=== PATIENT | male | born 1955 | race Asian ===

== ENCOUNTER 2019-04-04 08:53 | Outpatient (CLI) | payer OTHER | END 2019-04-04 19:22 | disposition home or self-care (01) | LOC: RAD 08:53 | DX: M96.69 Fracture of other bone following insertion of orthopedic implant, joint prosthesis, or bone plate (principal); M17.0 Bilateral primary osteoarthritis of knee; H54.7 Unspecified visual loss; K90.0 Celiac disease; N18.3 Chronic kidney disease, stage 3 (moderate); Z85.528 Personal history of other malignant neoplasm of kidney; I10 Essential (primary) hypertension; R73.03 Prediabetes ==

== ENCOUNTER 2020-07-26 09:41 | Emergency (ER) | payer OTHER ==
[~2020-07-26] VITALS: Ht 195.6 cm; Wt 149.7 kg
[2020-07-26 10:10] VITALS: TEMP 98.2
[2020-07-26 11:24] VITALS: BP 156/89
== END 2020-07-26 11:24 | disposition home or self-care (01) ==
LOC: ED 09:41
PROC: 0HQGXZZ Repair Left Hand Skin, External Approach (ICD-10-PCS; principal; 2020-07-26)
DX: S61.217A Laceration without foreign body of left little finger without damage to nail, initial encounter (principal); W29.8XXA Contact with other powered hand tools and household machinery, initial encounter; Y92.89 Other specified places as the place of occurrence of the external cause
CPT/HCPCS: 90471; 90715; 96372; 99283; J0690; J1885

== ENCOUNTER 2020-08-02 10:33 | Emergency (ER) | payer OTHER ==
[~2020-08-02] VITALS: Ht 195.6 cm; Wt 149.7 kg
[2020-08-02 10:39] VITALS: BP 179/93; TEMP 97.9
== END 2020-08-02 11:15 | disposition home or self-care (01) ==
LOC: ED 10:33
DX: Z48.02 Encounter for removal of sutures (principal)

== ENCOUNTER 2022-02-19 13:35 | Outpatient (CLI) | payer OTHER | END 2022-02-19 19:00 | disposition home or self-care (01) | LOC: LABW 13:35 → RAD 13:35 | PROVIDERS: ATTEND Nurse Practitioner Family | DX: J20.9 Acute bronchitis, unspecified (principal) | CPT/HCPCS: 36415; 80053; 82550; 82553; 84484; 85379; 93005 ==